=== PATIENT | male | born 1960 | race Caucasian/White ===

== ENCOUNTER → 2019-08-05 | Outpatient (CLI) | payer OTHER ==
--- NOTE | 2019-08-05 12:44 | RADIOLOGY REPORT (SQ) ---
EXAM DESCRIPTION: CT LUNG CANCER SCREENING COMPLETED DATE/TIME: 08/05/2019 9:28 am REASON FOR STUDY: Z12.2 ENCNTR SCREEN FOR MALIGNANT NEOPLASM OF RESPIRATORY ORGANS Z12.2 ENCNTR SCR EEN FOR MALIGNANT NEOPLASM OF RESPIRATORY OR Has the patient had a Chest CT scan within the past year? N Was the patient offered tobacco cessation counseling? Y Was the patient engaged in shared decision making for this test? Y Does the patient have signs or symptoms of Lung Cancer? N Is the patient a smoker? Y How many pack years? 40 How many years since quitting smoking? 0 Patients age: 59 COMPARISON: None. TECHNIQUE: Low Dose CT scan performed of the chest without intravenous contrast for purposes of scre ening for lung cancer. Images reviewed with lung, soft tissue and bone windows. Reconstructed coron al and sagittal MPR images reviewed. All images stored on PACS. All CT scanners at this facility use dose modulation, iterative reconstruction, and/or weight based d osing when appropriate to reduce radiation dose to as low as reasonably achievable (ALARA). [facility]: Dose Right [facility]: CareDose [facility]: Dose Right [facility]: Teradose 4D [facility]: Smart Orthomimetics RADIATION DOSE: CT Rad equipment meets quality standard of care and radiation dose reduction techniq ues were employed. CTDIvol: NaN mGy. DLP: 0 mGy-cm. mGy. . LIMITATIONS: Computer-aided detection not utilized, potentially limiting. FINDINGS: LUNGS AND PLEURA: No masses or nodules. No pleural effusions or calcifications. No pne umothorax. Prominent basilar lung cysts, most notable on the left. HILAR AND MEDIASTINAL STRUCTURES: Small nodes without enlargement. No mass or esophageal dilatation or hernia. HEART AND VASCULAR STRUCTURES: Mildly dilated ascending aorta up to just over 4 cm. No pericardial effusion or cardiac devices. CORONARY ARTERY CALCIFICATIONS: Marked coronary calcification. UPPER ABDOMEN, THYROID, BONES, OTHER SOFT TISSUES: No significant findings. IMPRESSION: NO SIGNIFICANT FINDING IN THE LUNGS ON NON-CONTRASTED CHEST CT. OTHER FINDINGS ABOVE, DILATED ASCENDING AORTA WHICH MAY WARRANT FOLLOW-UP. CORONARY ARTERIES ARE ALSO HEAVILY CALCIFIED. LUNGRADS: LUNGRADS: 1 NEGATIVE. NO NODULES, OR DEFINITELY BENIGN NODULES MODIFIER: S CLINICALLY SIGNIFICANT OR POTENTIALLY CLINICALLY SIGNIFICANT FINDINGS (non lung cancer) RECOMMENDATION: Continue annual screening with LDCT in 12 months. COMMENT: CRITERIA: No lung nodules. Nodules with specific calcifications: Complete, central, popcorn, concentric rings and fat containin g nodules. TECHNICAL DOCUMENTATION: JOB ID: [id number] Quality ID # [id number]: Final reports with documentation of one or more dose reduction techniques (e.g., Au tomated exposure control, adjustment of the mA and/or kV according to patient size, use of iterative reconstruction technique) 2010 [facility] Radiology Reading location - IP/workstation name: [facility]
== END ==
LOC: RAD 09:07
PROVIDERS: ATTEND Nurse Practitioner Family
DX: Z12.2 Encounter for screening for malignant neoplasm of respiratory organs (principal); I25.10 Atherosclerotic heart disease of native coronary artery without angina pectoris
CPT/HCPCS: G0297

== ENCOUNTER → 2019-08-19 | Outpatient (CLI) | payer OTHER ==
--- NOTE | 2019-08-19 09:10 | RADIOLOGY REPORT (SQ) ---
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 TECHNIQUE: Static and dynamic grayscale images acquired of the aorta and stored on PACs. Selected co kilo Doppler and spectral images recorded. LIMITATIONS: None. FINDINGS: AORTIC CALIBER MAXIMAL PROXIMAL: 2.8 cm. MID: 2.6 cm. DISTAL: 4.1 cm. ILIAC DIAMETER RIGHT: Nonvisualized LEFT: Nonvisualized OTHER: No other significant finding. IMPRESSION: Dilation of the distal abdominal aorta measuring up to 4.1 cm. Follow-up recommendation s as below. COMMENT: Aortic aneurysm imaging followup: 4.0-4.4 cm Every 12 months, vascular consultation recommended *Based upon the Society for Vascular Surgery Guidelines: J Vasc Surg. 2009 Oct;50(4 Suppl):S2-49 *For aortas of maximum diameter of 2.6-2.9 cm meeting the criteria for AAA (?1.5 x proximal normal se gment) TECHNICAL DOCUMENTATION: JOB ID: [id number] [employer]- All Rights Reserved Reading location - IP/workstation name: [email or web address]
== END ==
LOC: RAD 07:50
PROVIDERS: ATTEND Nurse Practitioner Family
DX: I77.810 Thoracic aortic ectasia (principal)
CPT/HCPCS: 76706

== ENCOUNTER → 2019-10-22 | Outpatient (CLI) | payer OTHER ==
[~2019-10-22] MED LIST: REGADENOSON INJ 0.4 MG/5 ML DISP.SYRIN IV ONE
--- NOTE | 2019-10-23 08:15 | DRAGON STRESS TEST REPORT ---
Name: Shree Sorensen : Jun Date: OCTOBER 20 The patient underwent a stress/rest, single isotope SPECT Imaging with pharmaological stress and gated SPECT imaging on OCTOBER 20 for evaluation of CAD. The patient underwent infusion of regadnoson 0.4mg IV using the standard protocol. The heart rate was 81 beats per minute at baseline and increased to 106 beats during the infusion of regadenoson. The resting blood pressure was 114/78 mm/Hg and decreased to 98/78 mm/Hg, which is a normal response. The patient complained of dyspnea during the procedure. The resting electrocardiogram demonstrated NSR with RBBB. Stress electrocardiogram demonstrated no ischemic changes. Myocardial perfusion imaging was performed at rest following the injection of 15.67 mCi of sestamibi. At peak pharmacolgic effect, the patient was injected with 46.9 mCi of sestamibi. Gating post-stress tomographic imaging was performed 60 minutes after stress. Findings The overall quality of the study is good. Raw images demonstrate diaphragmatic attenuation. Left ventricular cavity is noted to be normal on the rest and stress studies. Resting SPECT images demonstrate a small, severe perfusion defect in the inferior wall. The stress images reveal homogeneous tracer distribution throughout the myocardium. Gated SPECT imaging reveals normal myocardial thickening and wall motion. The left ventricular ejection fraction was calculated to be 56% Impression -Myocardial perfusion imaging is normal with diaphragmatic attenuation artifact in the inferior wall noted in the resting images. -There is no scintigraphic evidence of ischemia or infarct. -Overall left ventricular systolic function was normal without wall motion. -There are no prior studies for comparison. [facility]
== END ==
LOC: RAD 06:15
PROVIDERS: ATTEND Internal Medicine Cardiovascular Disease
DX: I25.10 Atherosclerotic heart disease of native coronary artery without angina pectoris (principal); R06.00 Dyspnea, unspecified
CPT/HCPCS: 93017; 78452; A9500; J2785; Q9969